=== PATIENT | female | born 1990 | race Caucasian/White ===

== ENCOUNTER 2016-06-13 17:23 | Emergency (ER) | payer BC ==
[~2016-06-13] VITALS: Ht 165.1 cm; Wt 56.7 kg
[2016-06-13 17:37] VITALS: BP 120/71
[2016-06-13] MEDS ORDERED: TDAP [DIPH/PERTUSSIS/TET] 0.5 ML VIAL IM ONE ×2 (17:51→18:00)
== END 2016-06-13 18:09 | disposition home or self-care (01) ==
LOC: ER 17:25
DX: S51.812A Laceration without foreign body of left forearm, initial encounter (principal); W26.8XXA Contact with other sharp object(s), not elsewhere classified, initial encounter; Y93.89 Activity, other specified; Y92.89 Other specified places as the place of occurrence of the external cause; Y99.9 Unspecified external cause status
CPT/HCPCS: 90715; A4606; A6402; Z7610